=== PATIENT | female | born 1980 | race Caucasian/White ===

== ENCOUNTER 2022-02-07 09:58 | Outpatient (REF) | payer OTHER, SELFPAY ==
[2022-02-07 11:38] LABS: Hematocrit 36.3 % (37.0-47.0); Hemoglobin 12.4 g/dl (12.0-16.0); Mean Corpuscular HGB Conc 34.2 g/dl (31.0-35.0); Mean Corpuscular Hemoglobin 31.2 pg (27.0-33.0); Mean Corpuscular Volume 91.4 fL (80.0-98.0); Mean Platelet Volume 10.1 fL (9.4-12.3); Platelet Count 277 X10*3/uL (160-400); Red Blood Count 3.97 X10*6/uL (4.20-5.50); Red Cell Distribution Width 13.9 % (11.0-16.0); White Blood Count 4.9 X10*3/uL (4.8-10.8)
[2022-02-07 12:26] LABS: Alanine Aminotransferase 8 U/L (0-31); Albumin Level 3.8 g/dL (3.5-5.0); Alkaline Phosphatase 58 U/L (39-117); Anion Gap 11 (12-20); Aspartate Amino Transferase 12 U/L (5-31); Bilirubin Total 1.6 mg/dL (0.0-1.0); Blood Urea Nitrogen 12 mg/dL (9-16); Calcium 8.7 mg/dL (8.4-10.2); Carbon Dioxide 26 mmol/L (22-29); Chloride 105 mmol/L (96-108); Cholesterol 168 mg/dL; Estimated Glomerular Filt Rate > 60; Glucose Fasting 89 mg/dL (60-99); HDL Cholesterol 56 mg/dL; LDL Cholesterol Calculated 94 mg/dl; Potassium 4.8 mmol/L (3.3-5.1); Sodium 137 mmol/L (135-145); TSH reflex Free T4 3.94 uIU/mL (0.32-4.0); Total Protein 6.2 g/dL (6.5-8.0); Triglycerides 94 mg/dL
== END 2022-02-07 09:59 | disposition home or self-care (01) ==
LOC: HO.WFDLDS 09:58
PROVIDERS: Visit Provider Hospitalist
DX: Z00.00 Encounter for general adult medical examination without abnormal findings (principal)
CPT/HCPCS: 36415; 80053; 80061; 84443; 85027

== ENCOUNTER 2023-04-24 15:47 | Outpatient (AMB) | payer OTHER, SELFPAY ==
--- NOTE | 2023-04-24 16:02 | A.OFFPC_ITS ---
Vital Signs 04/24/23 16:03 Height 5 ft 5 in Weight 134 lb 8 oz BMI 22.4 BP 110/58 L Blood Pressure Location Rt brachial Position Sitting Pulse 57 Pulse Source Pulse Oximeter Pulse Oximetry (%) 100 Oxygen Delivery Method Room Air Intake Visit Reasons: NPV/ transfer from [facility] Intake Note: pt is here to transfer from [facility] Allergies No Known Allergies Allergy (Verified 04/24/23 17:11) Medication List - Last Reconciled 04/24/23 by GEETA Carlton propranolol 20 mg PO BID 90 days Tobacco use date assessed: 04/24/23 Dental Screening Dental Screen Date: 04/24/23 Did you have a dental visit in the last 12 months?: Yes Did you have a dental problem in the last 6 months where you did not have access to dental care?: No Was dental information given to patient?: Patient has dentist HPI NPV/ transfer from [facility] HPI Details New pt is here for a PE. Will order labs. Pt will schedule her own mammo. 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 Hx of POTS, though managed with propranolol, pt reports it is fairly controlled. She did see cardiology when she was first diagnosed, but no longer does. [facility] Medical History POTS (postural orthostatic tachycardia syndrome) Migraines Surgical History No pertinent past surgical history Family History Mother Diabetes Clotting disorder No family history of mental disorder Father Diabetes Clotting disorder No family history of mental disorder Maternal Grandmother Diabetes Alzheimer disease No family history of mental disorder Social History Housing: House Patient Tobacco Use Status: Never used Tobacco e-Cigarette/Vaping Use: Never Used Current occupational status: employed Cognitive needs: No Hearing needs: No Vision needs: No Questionnaire PHQ-9 Over the last 2 weeks, how often have you been bothered by any of the following problems? 1. Little interest or pleasure in doing things: not at all 2. Feeling down, depressed, or hopeless: not at all 3. Trouble falling or staying asleep, or sleeping too much: several days 4. Feeling tired or having little energy: several days 5. Poor appetite or overeating: not at all 6. Feeling bad about yourself - or that you are a failure or have let yourself or your family down: not at all 7. Trouble concentrating on things, such as reading the newspaper or watching television: not at all 8. Moving or speaking so slowly that other people could have noticed. Or the opposite - being so fidgety or restless that you have been moving around a lot more than usual: not at all 9. Thoughts that you would be better off or of hurting yourself in some way: not at all Total score: 2 Depression Screening Interpretation: Negative Depression Screening Done: Yes 58601 - PHQ-9 Billing: Yes Source: Developed by Drs. Dickson Wagner, Marti Castellanos, Dakotah Rogers and colleagues, with an educational lianne from [employer]. Thrive Questionnaire Date Thrive assessed: 04/24/23 I am a: Patient What is your living situation today?: I have a steady place to live Within the past 12 months, did the food you bought not last and you didn't have the money to get more?: Never true Within the past 12 months, did you worry whether your food would run out before you got money to buy more?: Never true Do you have trouble paying for medicines?: No Do you have trouble getting transportation to medical appointments?: No Do you have trouble paying your heating and electricity bill?: No Do you have trouble taking care of your child, family member or friend?: No Do you have trouble with day-to-day activities such as bathing, preparing meals, shopping, managing finances, etc.?: No Are you currently unemployed and looking for a job?: No Are you interested in more education?: No Currently or been in a relationship where the following occur: no concerns reported THRIVE Score: 0 AUDIT C Alcohol Use Questionnaire (AUDIT-C) 1. How often do you have a drink containing alcohol?: Monthly or less 2. How many drinks containing alcohol do you have on a typical day when you are drinking?: 1 or 2 3. How often do you have six or more drinks on one occasion?: Never Total Score: 1 LAZ-7 AMB Questionnaire LAZ-7 Date LAZ - 7 assessed: 04/24/23 Feeling nervous, anxious, or on edge: 0 = Not at all Not being able to stop or control worryin = Not at all Worrying too much about different things: 0 = Not at all Trouble relaxin = Not at all Being so restless that it is hard to sit still: 0 = Not at all Becoming easily annoyed or irritable: 0 = Not at all Feeling afraid as if something awful might happen: 0 = Not at all Total LAZ-7 score (0-4 normal; 5-9 mild; 10-14 moderate; 15-21 severe): 0 Source: Developed by Drs. Dickson Wagner, Marti Castellanos, Dakotah Rogers and colleagues, with an educational lianne from [employer]. LAZ-7 Assessment Billing LAZ-7 Assessment Tool: LAZ-7 Assessment 94346 Review of Systems Const Denies chills and Denies fever(s) Eyes Denies blurry vision ENT Denies vertigo, Denies dizziness and Denies sore throat Card Denies chest pain at rest, Denies chest pain with activity, Denies diaphoresis, Denies dyspnea and Denies dyspnea on exertion Resp Denies cough, Denies dyspnea, Denies dyspnea on exertion and Denies wheezing GI Denies abdominal pain, Denies melena, Denies hematochezia, Denies constipation, Denies diarrhea and Denies loose stools Denies hematuria Musc Denies numbness and Denies tingling Skin/Breast Denies lesions Neuro Denies vertigo, Denies dizziness, Denies numbness and Denies tingling Psych Denies anxiety, Denies depression, Denies homicidal ideation, Denies suicidal ideation and Denies other (substance abuse) Aller/Immun Denies wheezing Physical exam (Primary Care) Vital Signs: Last Vital Signs Pulse 57 04/24/23 16:03 BP 110/58 L 04/24/23 16:03 Pulse Ox 100 04/24/23 16:03 Oxygen Delivery Method Room Air 04/24/23 16:03 BMI result Body Mass Index 22.4 Tobacco/Smoking Status: Tobacco use Status Tobacco use date assessed 04/24/23 04/24/23 16:08 Patient Tobacco Use Status Never used Tobacco 04/24/23 16:08 e-Cigarette/Vaping Use Never Used 04/24/23 16:08 PHQ-9: PHQ-9 Score PHQ-9: Total score 2 04/24/23 16:27 Depression Screening Interpretation: Negative Thrive Assessment: Date of Thrive Assessment Date Thrive assessed 04/24/23 04/24/23 16:11 Currently or been in a relationship where the following occur: no concerns reported Const General: cooperative Nutritional Appearance: well nourished Orientation/consciousness: patient oriented x3 HENMT Head: Yes normal to inspection, Yes normocephalic and Yes atraumatic Ears: TM's normal bilaterally Eyes General: appearance normal, both eyes and all related structures Alignment and Position: alignment normal and position normal Neck Neck: Yes normal visual inspection and Yes no lymphadenopathy Thyroid: Thyroid normal Resp Effort & Inspection: normal respiratory effort Auscultation: clear to auscultation bilaterally Cardio Rate: regular rate Rhythm: regular rhythm Heart sounds: S1 normal heart sound present, S2 normal heart sound present and no murmurs GI Palpation (GI): Soft to palpation and nontender Auscultation: normal bowel sounds Skin Rashes: no rashes Neuro General: patient oriented x3, moves all extremities, no focal motor deficits and deep tendon reflexes 2+ bilaterally Romberg Test: Negative Psych Appearance: grossly normal Mental Status: mental status grossly normal Speech and movement: Normal speech and movement present Affect: normal affect Attitude: cooperative Thought process: Normal thought process present Thought content: Normal thought content present Insight: Good insight present (Psych) Judgement: Good judgement present (Psych) Assessment and Plan Assessment & Plan (1) Physical exam: Code(s): Z00.00 - Encounter for general adult medical examination without abnormal findings Plan: Labs ordered (2) POTS (postural orthostatic tachycardia syndrome): Code(s): G90.A - Postural orthostatic tachycardia syndrome [POTS] Plan: controlled currently with use of propranolol Plan The patient agreed to the use of a family practice medical doctor for this encounter. Scribed for GEETA Brewer by Fabiana Rosenberg family practice medical doctor, on 04/24/2023 at 16:20 EST. Orders: Orders TSH reflex Free T4 Today Z00.00 - Encounter for general adult medical examination without abnormal findings Complete Blood Count Auto Diff Today Z00.00 - Encounter for general adult medical examination without abnormal findings Comprehensive [place]. Panel Fast Today Z00.00 - Encounter for general adult medical examination without abnormal findings UA CC w/rflx Micro + Cult Today Z00.00 - Encounter for general adult medical examination without abnormal findings Lipid Panel Today Z00.00 - Encounter for general adult medical examination without abnormal findings Coding Level of Care Code New Pt Prev Care 40-64y(49712) Diagnoses Physical exam Z00.00 POTS (postural orthostatic tachycardia syndrome) G90.A Additional Codes LAZ-7 Assessment Billing - LAZ-7 Assessment Tool: LAZ-7 Assessment 54949 ([id number])
[2023-04-24 16:03] VITALS: BP 110/58; PULSE 57; O2SAT 100; BMI 22.4
== END 2023-04-24 16:54 | disposition home or self-care (01) ==
PROVIDERS: PCP Hospitalist; Visit Provider Nurse Practitioner Family
DX: Z00.00 Encounter for general adult medical examination without abnormal findings (principal); G90.A Postural orthostatic tachycardia syndrome [POTS]
CPT/HCPCS: 99386; 99396

== ENCOUNTER 2024-04-29 08:58 | Outpatient (AMB) | payer OTHER, SELFPAY ==
[2024-04-29 09:08] VITALS: BP 110/72; PULSE 93; TEMP 36.6; O2SAT 99; BMI 21.3
--- NOTE | 2024-04-29 09:08 | MHC.PC.OV ---
Vital Signs 04/29/24 09:08 Height 5 ft 5 in Weight 128 lb BMI 21.3 BP 110/72 Blood Pressure Location Lt brachial Position Sitting Pulse 93 Pulse Source Pulse Oximeter Temp 97.8 F Temp Source Oral Pulse Oximetry (%) 99 Oxygen Delivery Method Room Air Intake Visit Reasons: ANNUAL PE Intake Note: pt is here for PE Tape Maker Required: No Accompanied by: Self / Same As Patient Allergies No Known Allergies Allergy (Verified 04/29/24 09:40) Medication List - Last Reconciled 04/29/24 by GEETA Carlton propranolol 20 mg PO BID 90 days Tobacco use date assessed: 04/29/24 Dental Screening Dental Screen Date: 04/29/24 Did you have a dental visit in the last 12 months?: Yes Did you have a dental problem in the last 6 months where you did not have access to dental care?: No Was dental information given to patient?: Patient has dentist HPI HPI Comments History of Present Illness Details History of Present Illness The patient is a 44-year-old female presenting with the need for a medication refill for Postural Orthostatic Tachycardia Syndrome (POTS). She is managed effectively with propranolol as part of her treatment plan and describes a history of regular annual visits to a valving machine operator, indicating consistent monitoring and evaluation. The patient denies any recent symptoms or exacerbations commonly associated with POTS, such as dizziness, fainting, or cardiovascular problems like chest pain. She adheres to her treatment plan, seeking a refill to continue her current management strategy. Health Maintenance - Mammogram is up-to-date. 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 Review of Systems - Cardiovascular: Denies chest pain, edema. - Respiratory: Denies shortness of breath. - Gastrointestinal: Denies abdominal pain, blood in stool, constipation, diarrhea. - Psychiatric: Denies ongoing anxiety, depression, suicidal ideation, or homicidal ideation. Physical Exam General: Cooperative, healthy appearing, comfortable, no acute distress and well developed Orientation: Patient oriented x3 Limitations: No limitations Head: Normal to inspection Ears: Hearing grossly normal bilaterally Nose: Normal external nose present Face and sinus: Normal facial exam Eyes: Appearance normal, both eyes and all related structures Neck: Normal visual inspection and Yes full ROM Respiratory: Normal respiratory effort and able to speak in complete sentences. Clear to auscultation bilaterally Cardiovascular: Regular rate and rhythm. Normal S1 and S2 GI: Normal to inspection. Soft to palpation and nontender Skin: No rashes or lesions noted Neuro: Patient oriented x3 Extremities: Normal to inspection, no edema noted Results Plan A refill for propranolol will be issued to support ongoing management of her Postural Orthostatic Tachycardia Syndrome POTS). The patient is stable under current management with regular valving machine operator evaluations, so no changes in treatment are necessary. Assistance will be provided to the patient in locating a new gynecological provider following the usp of her previous provider. Discussion Notes I discussed the continuation of propranolol for POTS with the patient. The focus is on maintaining her current management regimen as it appears effective, considering her symptom stability and annual valving machine operator check-ups. I provided information on seeking a new timing machine operator due to her current provider's usp, and I agreed to facilitate this referral. Patient Instructions - Continue taking propranolol as prescribed for POTS. - Attend annual cardiology appointments as scheduled. - Seek assistance to find a new timing machine operator for ongoing reproductive health needs. - Report any changes in symptoms or new health concerns promptly. [facility] Medical History POTS (postural orthostatic tachycardia syndrome) Migraines Surgical History No pertinent past surgical history Family History Mother Diabetes Clotting disorder No family history of mental disorder Father Diabetes Clotting disorder No family history of mental disorder Maternal Grandmother Diabetes Alzheimer disease No family history of mental disorder Social History Housing: House Patient Tobacco Use Status: Never used Tobacco e-Cigarette/Vaping Use: Never Used Current occupational status: employed Cognitive needs: No Hearing needs: No Vision needs: No Questionnaire PHQ-9 Over the last 2 weeks, how often have you been bothered by any of the following problems? 1. Little interest or pleasure in doing things: not at all 2. Feeling down, depressed, or hopeless: not at all 3. Trouble falling or staying asleep, or sleeping too much: several days 4. Feeling tired or having little energy: not at all 5. Poor appetite or overeating: not at all 6. Feeling bad about yourself - or that you are a failure or have let yourself or your family down: not at all 7. Trouble concentrating on things, such as reading the newspaper or watching television: not at all 8. Moving or speaking so slowly that other people could have noticed. Or the opposite - being so fidgety or restless that you have been moving around a lot more than usual: not at all 9. Thoughts that you would be better off or of hurting yourself in some way: not at all Total score: 1 Depression Screening Interpretation: Negative Depression Screening Done: Yes 16822 - PHQ-9 Billing: Yes Source: Developed by Drs. Dickson Wagner, Marti Castellanos, Dakotah Rogers and colleagues, with an educational lianne from [employer] Thrive Questionnaire Date Thrive assessed: 04/29/24 I am a: Patient What is your living situation today?: I have a steady place to live Within the past 12 months, did the food you bought not last and you didn't have the money to get more?: Never true Within the past 12 months, did you worry whether your food would run out before you got money to buy more?: Never true Do you have trouble paying for medicines?: No Do you have trouble getting transportation to medical appointments?: No Do you have trouble paying your heating and electricity bill?: No Do you have trouble taking care of your child, family member or friend?: No Do you have trouble with day-to-day activities such as bathing, preparing meals, shopping, managing finances, etc.?: No Are you currently unemployed and looking for a job?: No Are you interested in more education?: No Please select the resources that you would like help with: None Currently or been in a relationship where the following occur: No concerns reported THRIVE Score: 0 AUDIT C Alcohol Use Questionnaire (AUDIT-C) 1. How often do you have a drink containing alcohol?: Monthly or less 2. How many drinks containing alcohol do you have on a typical day when you are drinking?: 1 or 2 3. How often do you have six or more drinks on one occasion?: Never Total Score: 1 Score Reviewed/Action Taken: Yes LAZ-7 AMB Questionnaire LAZ-7 Date LAZ - 7 assessed: 04/29/24 Feeling nervous, anxious, or on edge: 0 = Not at all Not being able to stop or control worryin = Not at all Worrying too much about different things: 0 = Not at all Trouble relaxin = Several days Being so restless that it is hard to sit still: 1 = Several days Becoming easily annoyed or irritable: 0 = Not at all Feeling afraid as if something awful might happen: 0 = Not at all Total LAZ-7 score (0-4 normal; 5-9 mild; 10-14 moderate; 15-21 severe): 2 Source: Developed by Drs. Dickson Wagner, Marti Castellanos, Dakotah Rogers and colleagues, with an educational lianne from [employer] LAZ-7 Assessment Billing LAZ-7 Assessment Tool: LAZ-7 Assessment 46979 Physical exam (Primary Care) Vital Signs: Last Vital Signs Temp 97.8 F 04/29/24 09:08 Pulse 93 04/29/24 09:08 BP 110/72 04/29/24 09:08 Pulse Ox 99 04/29/24 09:08 Oxygen Delivery Method Room Air 04/29/24 09:08 BMI result Body Mass Index 21.3 Tobacco/Smoking Status: Tobacco use Status Tobacco use date assessed 04/29/24 04/29/24 09:10 Patient Tobacco Use Status Never used Tobacco 04/29/24 09:10 e-Cigarette/Vaping Use Never Used 04/29/24 09:10 PHQ-9: PHQ-9 Score PHQ-9: Total score 1 04/29/24 09:10 Depression Screening Interpretation: Negative Thrive Assessment: Date of Thrive Assessment Date Thrive assessed 04/29/24 04/29/24 09:10 Currently or been in a relationship where the following occur: No concerns reported Coding Level of Care Code Est Pt Prev Care 40-64y(63617) Diagnoses Physical exam Z00.00 Screening for cervical cancer Z12.4 Additional Codes LAZ-7 Assessment Billing - LAZ-7 Assessment Tool: LAZ-7 Assessment 15709 ([id number]) PHQ-9 - 70172 - PHQ-9 Billing: Yes ([id number]) Assessment & Plan Assessment & Plan (1) Physical exam: Code(s): Z00.00 - Encounter for general adult medical examination without abnormal findings Category: Medical (2) Screening for cervical cancer: Code(s): Z12.4 - Encounter for screening for malignant neoplasm of cervix Category: Medical Plan . Orders: Orders Complete Blood Count Auto Diff Today Z00.00 - Encounter for general adult medical examination without abnormal findings Comprehensive [place]. 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
== END 2024-04-29 09:54 | disposition home or self-care (01) ==
PROVIDERS: PCP Nurse Practitioner Family; Visit Provider Nurse Practitioner Family
DX: Z00.00 Encounter for general adult medical examination without abnormal findings (principal); Z12.4 Encounter for screening for malignant neoplasm of cervix

== ENCOUNTER → 2024-04-29 08:58 | Outpatient (BNVA) | payer OTHER, SELFPAY | PROVIDERS: PCP Nurse Practitioner Family; Visit Provider Nurse Practitioner Family | DX: Z00.00 Encounter for general adult medical examination without abnormal findings (principal); G90.A Postural orthostatic tachycardia syndrome [POTS] | CPT/HCPCS: 96127 ==

== ENCOUNTER 2024-11-28 09:10 | Outpatient (REF) | payer OTHER, SELFPAY | END 2024-11-28 09:11 | disposition home or self-care (01) | LOC: HO.LNP 09:10 | PROVIDERS: PCP Nurse Practitioner Family; Visit Provider Advanced Practice Midwife | DX: Z01.419 Encounter for gynecological examination (general) (routine) without abnormal findings (principal); G90.A Postural orthostatic tachycardia syndrome [POTS]; Z12.39 Encounter for other screening for malignant neoplasm of breast | CPT/HCPCS: 87626; 88175 ==

== ENCOUNTER 2024-11-28 09:10 | Outpatient (AMB) | payer OTHER, SELFPAY ==
--- NOTE | 2024-11-28 09:11 | A.OFFVIS_ITS ---
Vital Signs 11/28/24 09:26 Height 5 ft 5 in Weight 130 lb BMI 21.6 BP 118/72 Intake Visit Reasons: New patient Annual Intake Note: per patient last pap smear 5+ years ago normal hvx. 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 She used to see Bonny Chavarria at [facility] but had not seen her since the pandemic and needed to wait a long time to get this appointment. She has never had an abnormal Pap smear she is in a monogamous relationship with her and has no need or desire or concern about STDs her only health concern is POTS which she manages very well she used to see a profiling machine operator at [facility] and now she sees her primary here who manages it for her in general she manages it well by staying hydrated and taking care of herself she exercise and eats very well she thinks she gets enough calcium in her diet. She keeps up-to-date on her mammograms she has a history of breast implants that she is very happy with and they have been replaced in the past as well she had a imbalance in the way her breasts were formed and now they are symmetrical. Last spring when she was waiting for appointments she had an episode where sometimes her period would not be regular as it is now and she was thinking she might be nicole menopausal but then it even doubt again and she is very regular and they last 4 days. She had her tubes tied after the of her 2nd child. [facility] Medical History (Updated 11/28/24 @ 10:07 by Deepti Covington CNM) Polycystic bilateral ovaries Miscarriage delivery delivered POTS (postural orthostatic tachycardia syndrome) Migraines Surgical History (Updated 11/28/24 @ 10:07 by Deepti Covington CNM) H/O breast augmentation No pertinent past surgical history Family History Mother Diabetes Clotting disorder No family history of mental disorder Father Diabetes Clotting disorder No family history of mental disorder Maternal Grandmother Diabetes Alzheimer disease No family history of mental disorder Social History Housing: House Patient Tobacco Use Status: Never used Tobacco e-Cigarette/Vaping Use: Never Used Current occupational status: employed Cognitive needs: No Hearing needs: No Vision needs: No Female Reproductive History Menstrual Age of Menarche: 10 Date of last menstrual period: 11/03/24 control method: permanent sterilization (Tubal Ligation) Total pregnancies: 3 Full term: 2 Ab spontaneous: 1 Date of Mammogram: 04/02/24 Physical Exam Const General: healthy appearing, comfortable, no acute distress, well developed and alert Nutritional Appearance: average body habitus Orientation/consciousness: patient oriented x3 Limitations: no limitations HEENT Head: Yes normocephalic Neck Neck: Yes normal visual inspection Chest Chest palpation & inspection: normal inspection of the chest Breast/axilla inspection: normal inspection of the breasts and normal inspection of the axillae Breast/axilla palpation: normal palpation of the breasts and normal palpation of the axillae Resp Effort & Inspection: normal respiratory effort GI Inspection: Yes normal to inspection, No Abdominal wall edema and No distended Palpation (GI): Soft to palpation and nontender Other: Normal external exam vagina moist pink somewhat thin mucosa cervix is pink and nulliparous normal scant clear discharge cervix is mobile nontender long thick closed uterus is small firm directly anterior mobile. Adnexa nontender mobile nonenlarged very good tone with Kegel. General: Yes bladder normal to palpation External Female Exam: normal external appearance and normal appearance of the urethra Speculum Exam - Vagina: normal appearance of the vagina, normal palpation and normal vaginal discharge Speculum Exam - Cervix: normal appearance of the cervix, normal palpation and nontender Bimanual exam- vagina & uterus: normal bimanual exam, normal palpation, uterine size normal, bladder normal to palpation, consistency normal, normal palpation, uterine mobility normal, uterine shape normal, No Cervical tenderness present, non-tender and no cervical motion tenderness Bimanual Exam- Adnexa, other: normal adnexae, no masses, normal and No adnexal tenderness Neuro General: patient oriented x3 Assessment & Plan Assessment & Plan (1) Screening for cervical cancer: Code(s): Z12.4 - Encounter for screening for malignant neoplasm of cervix Category: Medical (2) POTS (postural orthostatic tachycardia syndrome): Code(s): G90.A - Postural orthostatic tachycardia syndrome [POTS] Category: Medical (3) Well woman exam with routine gynecological exam: Code(s): Z01.419 - Encounter for gynecological examination (general) (routine) without abnormal findings Category: Medical (4) Breast cancer screening: Comment: Negative breast exam gets regular mammograms at [facility]. Code(s): Z12.39 - Encounter for other screening for malignant neoplasm of breast Category: Medical Plan -----Discussed in this visit the following: healthy balanced diet, regular and consistent exercise, getting recommended health screens, doing the best she can for her particular health concerns, kegel exercises, pap smear screening and followup recommendations, mammography screening and SBE, normal changes in cycles in her life stage--- .---Discussed normal changes that happen premenapausally, perimenapausally, and postmenopausally, and ways to handle them. Discussed the normal variation, and the range of experiences that women experience. Discussed nutrition, health, need for exercise, both weight-bearing and aerobic. Also discussed the normal changes that happen with vaginal mucosal thinning and sensitivity, and simple more natural ways of handling these challenges. Coding Level of Care Code Est Pt Prev Care 40-64y(23471) Diagnoses Screening for cervical cancer Z12.4 POTS (postural orthostatic tachycardia syndrome) G90.A Well woman exam with routine gynecological exam Z01.419 Breast cancer screening Z12.39
[2024-11-28 09:26] VITALS: BP 118/72; BMI 21.6
== END 2024-11-28 10:56 | disposition home or self-care (01) ==
LOC: HO.HWSM 09:10
PROVIDERS: PCP Nurse Practitioner Family; Visit Provider Advanced Practice Midwife
DX: Z01.419 Encounter for gynecological examination (general) (routine) without abnormal findings (principal); G90.A Postural orthostatic tachycardia syndrome [POTS]; Z12.39 Encounter for other screening for malignant neoplasm of breast
CPT/HCPCS: 99396; 99459